=== PATIENT | male | born 1945 | race Two or more races ===

== ENCOUNTER → 2025-05-10 | Outpatient (CLI) | payer MEDICARE, BC, SELFPAY ==
--- NOTE | 2025-05-10 | XR_ITS ---
Examination: Left ankle 2 views Technique one AP lateral left ankle 2 views Date and time: May 10, 2025 1337 hours INDICATIONS: Patient fell 2 days ago with injury to the ankle, ankle pain. FINDINGS: No acute ankle fracture. 5 mm plantar bony calcaneal spur. No ankle dislocation IMPRESSION: No acute fracture.
--- NOTE | 2025-05-10 | XR_ITS ---
Examination: Knee bilateral, 4 views Technique: Knee AP, lateral, each knee total 4 views Date and time of exam: May 10, 2025 1329 hours INDICATIONS: Patient fell 2 days ago with injury to both knees, bilateral knee pain. FINDINGS: Bilateral advanced narrowing medial joint spaces. Significant bilateral osteoarthritis patellofemoral joints. No acute fractures IMPRESSION: No acute fractures or dislocations
== END | disposition home or self-care (01) ==
LOC: CDIM 12:30
PROVIDERS: PCP Family Medicine
DX: M25.561 Pain in right knee (principal); M25.572 Pain in left ankle and joints of left foot
CPT/HCPCS: 73560; 73600